=== PATIENT | female | born 1955 | race African-American/Black ===

== ENCOUNTER 2019-11-06 11:13 | Inpatient (IN) | payer OTHER, BC ==
[~2019-11-06] VITALS: Ht 162.6 cm; Wt 115.2 kg
[~2019-11-06 11:13] MED LIST: COZAAR 50 MG TA50 M1 PO; COZAAR PO; FISH OIL 1,0001 EAC5 PO; FISHOIL; FLEXERIL PO; GLUCOPHAGE1000 MG PO; HYDROCHLOROTHIA25 M2 PO; IMITREX 50 MG T50 M1 PO; LANTUS SQ; MEDROLDOSEPACK PO; MULTIVITAMINS PO; NEURONTIN 300300 M1 PO; PLAVIX 75 MG TA75 MG PO; PROAIR HFA8.5 GM IH; RANITIDINE HCL150 M1 PO; TOPROL XL50 MG; TOPROL XL50 MG PO; ZANAFLEX4 M1 PO; ZOLOFT 50 MG TA50 M1 PO; ZPAK PO
[2019-11-06 11:28] VITALS: BP 113/77
[2019-11-06 12:16] LABS: ABSOLUTE NEUTROPHILS 15.3 thou/uL (1.4-8.2); BASOPHILS 0.7 % (0.0-2.0); EOSINOPHILS 0.2 % (0.0-3.0); HEMATOCRIT 30.4 % (37.0-47.0); LYMPHOCYTES 9.2 % (24.0-44.0); MCH 27.5 pg (26.0-34.0); MCV 83.4 fL (80.0-100.0); MONOCYTES 7.6 % (1.0-8.0); PLATELET COUNT 263 thou/uL (150-400); POLYS 82.3 % (36.0-66.0); RBC 3.65 mil/uL (4.20-5.00); RDW 14.6 % (10.5-14.5); WBC 18.6 thou/uL (4.0-11.0)
[2019-11-06 12:19] LABS: ANION GAP 10 mmol/L (7-16); BUN 56 mg/dL (7-18); CHLORIDE 94 mmol/L (98-107); CO2 24 mmol/L (21-32); CREATININE 4.1 mg/dL (0.6-1.0); GLUCOSE 266 mg/dL (74-106); POTASSIUM 4.2 mmol/L (3.5-5.1); SODIUM 128 mmol/L (136-145)
[2019-11-06 12:29] LABS: ALBUMIN 2.2 g/dL (3.4-5.0); LIPASE 244 U/L (73-393); SGOT 35 U/L (15-37); SGPT 29 U/L (30-65); TOTAL BILIRUBIN 0.7 mg/dL (0.2-1.0); TOTAL PROTEIN 8.3 g/dL (6.4-8.2); TROPONIN-I <0.06 ng/mL (<0.06)
[2019-11-06] MEDS ORDERED: ACID CONTROLLER20 MG PO (13:28)
[2019-11-06] MEDS ORDERED: LIPITOR 40 MG T40 M1 PO (13:29)
[2019-11-06] MEDS ORDERED: AZOPT OPHTH1 %/10 M1 OPHTHALMIC (13:30)
[2019-11-06] MEDS ORDERED: FUROSEMIDE 20 M20 MG PO (13:30)
[2019-11-06] MEDS ORDERED: COMBIGAN EYE DR10 ML OPHTHALMIC (13:31)
[2019-11-06] MEDS ORDERED: BRIMONIDINE TART5 ML OPHTHALMIC (13:32)
[2019-11-06 14:03] LABS: URINE BILIRUBIN NEGATIVE (Negative); URINE BLOOD 1+ (Negative); URINE CLARITY CLEAR; URINE COLOR YELLOW; URINE GLUCOSE-RANDOM* TRACE (Negative); URINE KETONES NEGATIVE (Negative); URINE LEUKOCYTES-REFLEX NEGATIVE (Negative); URINE NITRITE-REFLEX NEGATIVE (Negative); URINE PROTEIN (DIPSTICK) 3+ (Negative)
[2019-11-06 14:08] LABS: BACTERIA-REFLEX 1-9 Few /HPF (None Seen); SQUAMOUS >10 Many /LPF (0-3); URINE RBC 0-2 Rare /HPF (0-2); URINE WBC-REFLEX 0-5 Rare /HPF (0-5)
[2019-11-06 14:09] LABS: CRYSTALS None Seen /LPF (None Seen)
[2019-11-06 14:45] LABS: URINE POTASSIUM-RANDOM* 48.2 mmol/L
--- NOTE | 2019-11-06 16:09 | EKG ---
[facility] [place] [address] ELECTROCARDIOGRAM REPORT Name: GERBER SHELL V Room #: 170- ADM IN M.R.#: [id number] Admission: 11/06/19 Attend Phys: Gray Blanca Discharge: Date of : 51 Report #: [id number] THIS REPORT FOR: cc: [facility] - Clinic physician unknown [facility] - Clinic physician unknown Austin Wesley MD [facility] ~ THIS REPORT FOR: //name// 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
[2019-11-06 16:54] VITALS: BP 122/70
[2019-11-06 19:30] VITALS: BP 150/80
[2019-11-06 20:30] VITALS: BP 115/75
--- NOTE | 2019-11-06 23:43 | NUR ---
PT ARRIVED VIA CART FROM ER. ADMISSION COMPLETED, CARE PLAN INITIATED, AND INTERVENTIONS UPDATED. PT IS COVID R/O FROM HOME. A/0X4 AND HAD A 101.8 FEVER WHEN SHE ARRIVED TO UNIT TYLENOL GIVEN. FALL HX WITHIN LAST WEEK, ABRASION TO RIGHT KNEE. PT PULLED OUT LEFT FOREARM IV WHEN GOING TO THE RESTROOM. RIGHT FOREARM IV ACCESS GAINED. ISOLATION AND FALL PRECAUTIONS IN PLACE.
[2019-11-07 05:26] LABS: HEMATOCRIT 30.2 % (37.0-47.0); HEMOGLOBIN 9.5 gm/dL (12.0-15.0); MCH 26.8 pg (26.0-34.0); MCHC 31.5 g/dL (28.0-37.0); MCV 84.9 fL (80.0-100.0); RBC 3.56 mil/uL (4.20-5.00); RDW 14.8 % (10.5-14.5)
[2019-11-07 06:39] LABS: ALBUMIN 1.9 g/dL (3.4-5.0); CALCIUM 8.3 mg/dL (8.5-10.1); CREATININE 4.1 mg/dL (0.6-1.0); PHOSPHORUS 3.8 mg/dL (2.5-4.9); POTASSIUM 3.7 mmol/L (3.5-5.1)
--- NOTE | 2019-11-07 07:17 | NUR ---
Nutrition: Received RD consult for 'diabetic diet and diet for diverticulitis'. Pt currently undering COVID testing. Will follow up to complete nutrition education once COVID results are known.
[2019-11-07 08:12] VITALS: BP 126/85
--- NOTE | 2019-11-07 10:13 | NUR ---
ULYSSES OTT STATED TO REMAIN IN ENHANCED PRECAUTIONS UNTIL EVALUATED BY DR LIZANDRO GOFF SINCE PATIENT HAD A FEVER 101.8 LAST NIGHT @ 1999...
--- NOTE | 2019-11-07 10:50 | NUR ---
INITIAL ASSESSMENt: Reviewed chart and spoke with nursing. Pt was admitted from home due to pneumonia/fevers. Pt is in Enhanced Isolation to r/o COVID-19. Pt's first test is negative. Awaiting input from ID regarding additional test. SW placed call to pt's room. No answer. Per chart, pt is alert/orientated x 4 and lives at home with her . Pt has health insurance through her 's employer. SW to follow up with pt at a later time and assist as needed with discharge planning.
[2019-11-07 12:24] VITALS: BP 135/78
[2019-11-07 16:42] VITALS: BP 142/63
--- NOTE | 2019-11-07 17:42 | NUR ---
PT REPORTS FEELING BETTER TODAY...COVID NEG X 1...NOTIFIED DR ANJU ARORA AND BACK OFFICE MEDICAL ASSISTANT OF RESULTS...WILL AWAIT DR LIZANDRO GOFF INPUT REGARDING ENHANCED PRECAUTIONS..
[2019-11-07 19:32] VITALS: BP 153/71
[2019-11-07 23:32] VITALS: BP 138/70
[2019-11-08 04:18] VITALS: BP 155/77
[2019-11-08 05:23] LABS: HEMATOCRIT 29.4 % (37.0-47.0); HEMOGLOBIN 9.5 gm/dL (12.0-15.0); MCH 27.5 pg (26.0-34.0); MCHC 32.3 g/dL (28.0-37.0); MCV 85.2 fL (80.0-100.0); RBC 3.46 mil/uL (4.20-5.00); RDW 14.8 % (10.5-14.5); WBC 10.5 thou/uL (4.0-11.0)
[2019-11-08 05:34] LABS: ALBUMIN 1.8 g/dL (3.4-5.0); CREATININE 3.4 mg/dL (0.6-1.0); PHOSPHORUS 3.2 mg/dL (2.5-4.9); POTASSIUM 3.8 mmol/L (3.5-5.1)
--- NOTE | 2019-11-08 05:54 | NUR ---
Patient making slow progress towards outcome goals. Febrile tonight, Temp range 99-101.2 orally. Not treated with Tylenol. White count improving. Up to BSC with standby assist, starting to gain leg strength back. IVfluids infusing. High fall risks, fall precautions in place.
[2019-11-08 08:00] VITALS: BP 144/85
--- NOTE | 2019-11-08 08:21 | NUR ---
Pt remains in isolation precautions. initial covid testing negative. High BMI 44.3=extreme class III obesity. Eating 25-80% of meals. BG 166-205 and requires HS insulin. Will add carb control to current diet order. Followup for any diet education needs once out of isolation. Low nutrition risk
--- NOTE | 2019-11-08 12:41 | NUR ---
SW reviewed chart and spoke with nursing and attending physician. Pt is slowly progressing towards goals for discharge. Pt remains in Enhanced Isolation. Pt is on IV abx. PT ordered to evaluate pt for discharge needs. Pt is normally independent with ADLs and ambulation. SW placed call to pt's room. No answer. Plan is for pt to discharge home when medically stable. SW is following and available to assist as needed with discharge planning.
[2019-11-08 15:53] VITALS: BP 150/87
--- NOTE | 2019-11-08 16:24 | NUR ---
ASSUMED CARE OF PT AT 0700. PT ALERT AND ORIENTED, IN NO ACUTE DISTRESS. DENIES PAIN. UP W/ SBA, WITHOUT DIFFICULTY. IV ABX INFUSING PER ORDER. BREATHING COMFORTABLY ON ROOM AIR. AFEBRILE TODAY. VITALS STABLE. C19 RESULTS NEGATIVE - HOSPITALIST AWARE.
[2019-11-08 19:38] VITALS: BP 168/83
--- NOTE | 2019-11-09 04:25 | NUR ---
resting quietly tonight. denies pain. coughing tonight, did not want anything to relieve. she gets up with only minimal assist to the bsc. continues on iv fluids. no elevated temperatures this shift. careplan reviewed.
[2019-11-09 04:51] VITALS: BP 157/84
[2019-11-09 06:00] LABS: ALBUMIN 1.8 g/dL (3.4-5.0); CALCIUM 8.4 mg/dL (8.5-10.1); CREATININE 2.9 mg/dL (0.6-1.0); PHOSPHORUS 2.8 mg/dL (2.5-4.9); POTASSIUM 4.2 mmol/L (3.5-5.1)
[2019-11-09 08:04] VITALS: BP 157/69
--- NOTE | 2019-11-09 15:27 | NUR ---
ASSUMED CARE OF PT AT 0700. PT AOX4 IN NO ACUTE DISTRESS. PLEASANT TODAY, VOICING NO CONCERNS. AMBULATING INDEPEDENTLY BUT SOA WHILE WALKING AROUND UNIT WITH PHYSICAL THERAPY. IV ABX INFUSING PER ORDER. PT WONDERING WHEN SHE WILL BE ABLE TO GO HOME. WCM.
[2019-11-09 19:35] VITALS: BP 159/79
[2019-11-10] VITALS (7 sets, daily range): BP systolic 152–154; BP diastolic 67–81
[2019-11-10 05:00] LABS: ALBUMIN 1.7 g/dL (3.4-5.0); CALCIUM 7.7 mg/dL (8.5-10.1); CREATININE 2.3 mg/dL (0.6-1.0); PHOSPHORUS 2.8 mg/dL (2.5-4.9); POTASSIUM 3.7 mmol/L (3.5-5.1)
--- NOTE | 2019-11-10 06:40 | NUR ---
PT MAKING PROGRESS TOWARDS GOALS. LUNGS DIMINISHED THROUGHOUT. NO COUGH NOTED. DENIED ANY SOA WHILE MOVING AROUND THE ROOM. PT HOPING FOR DISCHARGE TODAY.
[2019-11-10] MEDS ORDERED: AUGMENTIN 875-1 EACH PO (18:15)
[2019-11-10] MEDS ORDERED: SODIUM BICARBO650 M3 PO (18:15)
--- NOTE | 2019-11-10 19:40 | NUR ---
PT DISCHARGED HOME WITH SELF CARES...DAUGHTER TO COME PICK HER UP...RX SENT ELECTRONICALLY AND RX GIVEN FOR AUGMENTIN AND NA BICARB...REST EXER OXIMETRY 98% RA...TO FOLLOW UP 3D WITH RENAL DR AND 1 WEEK WITH PCP...
--- NOTE | 2019-11-11 02:27 | NUR ---
PT WAS DISCHARGED BETWEEN 8-9PM ON 11/10/19. ALL DISCHARGE MATERIALS WERE GIVEN TO THE PATIENT AND PT WAS COHERENT AND AOX4 AT THE TIME OF THE DISCHARGE. PT'S CALLED AN HOUR LATER, INQUIRED MORE ABOUT DISCHARGE INSTRUCTIONS AND REQUESTED ASSISTANCE WITH OBTAINING PRESCRIPTIONS ON A MONDAY EVENING AT 10PM. RN WAS ABLE TO CALL IN PRESCRIPTION AT A LOCAL PHARMACY, AND FURTHER EXPLAINED THE DISCHARGE INSTRUCTION. PT'S CALLED AGAIN TO ASK ABOUT DIRECTIONS FOR MEDICATION. RN WAS ABLE TO CLEAR THE DIRECTIONS FOR THE PT'S FAMILY WELL. PT'S VERBALLY EXPRESSED CONTENT FOR THE TIME BEING. RN REASSURED THAT PT'S FAMILY MAY CALL FOR ANY ASSISTANCE NEEDED AND 3W TEAM WOULD BE GLAD TO BE OF HELP.
--- NOTE | 2019-11-22 15:17 | HC ---
[facility] [place] [address] CONSULTATION Name: GERBER SHELL V Room #: 359-P [facility] IN M.R.#: [id number] Admission: 11/06/19 Attend Phys: Gray Blanca Discharge: 11/10/19 Date of : 51 Report #: [id number] THIS REPORT FOR: cc: [facility] - Clinic physician unknown [facility] - Clinic physician unknown Presley Lua MD ~ CC: [facility] unknown Gray Blanca REASON FOR CONSULTATION: Elevated creatinine. REASON FOR PRESENTATION: Shortness of breath. HISTORY OF PRESENT ILLNESS: This is a 64-year-old with known longstanding hypertension and diabetes mellitus. She is chronic kidney disease patient who used to see me in the clinic a couple of years ago with a baseline creatinine of around 2.0. Unfortunately, she lost to follow up with our clinic. She presented to the Emergency Room reporting some major cough and shortness of breath. She was admitted and is being ruled out for COVID-19 infection. Creatinine on presentation was elevated at 4.1 and with hydration this has trended down to 3.4. The patient is currently being treated as a case of community-acquired pneumonitis. I was asked to assist with the management of her chronic kidney disease. She denies any current urinary symptoms. From the kidney perspective, as stated above, the patient lost to follow up with our kidney clinic. Baseline creatinine a year ago was in the 2 range. She had proven chronic kidney biopsy attributed to her diabetes mellitus and hypertension. ALLERGIES: MORPHINE, ASPIRIN, IBUPROFEN, LATEX. PAST MEDICAL AND SURGICAL HISTORY: 1. Diabetes mellitus. 2. Hypertension. 3. Chronic kidney disease with a baseline creatinine of around 2. 4. Hysterectomy. 5. Cholecystectomy. 6. Repeated episodes of hypertensive urgency and pulmonary edema at different facilities including [facility] and [facility]. SOCIAL HISTORY: Lives with her . No drug or alcohol abuse. MEDICATIONS: 1. Atorvastatin 40 mg daily. 2. Lasix 20 mg daily. 3. Losartan 100 mg daily. 4. Glargine insulin 35 units at bedtime. 5. Hydrochlorothiazide. [facility] [address] [place] [address] CONSULTATION Name: GERBER SHELL V Room #: 359-P [facility] IN M.R.#: [id number] Admission: 11/06/19 Attend Phys: Gray Blanca Discharge: 11/10/19 Date of : 51 Report #: [id number] 6. Famotidine. REVIEW OF SYSTEMS: GENERAL: No fever or chills. CARDIOVASCULAR: As per the history of present illness. PULMONARY: As per the history of present illness. GASTROINTESTINAL: No nausea or vomiting. GENITOURINARY: No frequency, no urgency. MUSCULOSKELETAL: Occasional back pain and myalgias. SKIN: No rash or ulcerations. NEUROLOGICAL: No headache, no dizziness, no syncope. PHYSICAL EXAMINATION: GENERAL: Alert, oriented, in no apparent distress. VITAL SIGNS: Blood pressure is 144/85, temperature is 37, pulse rate 87, respiratory rate is 16. HEAD AND NECK: No jugular venous distention, no bruit, no thyromegaly. CHEST: Decreased air entry bilaterally with minimal bilateral crackles. CARDIOVASCULAR: Regular with no rub detected. ABDOMEN: Soft, nontender. LOWER EXTREMITIES: Trace edema. LABORATORY DATA: On presentation, her white blood cell count was 18.6. This was down to 10.5. She is anemic with a hemoglobin of 9.5. Sodium is 135, BUN is 53, creatinine is 3.4. Blood sugar is elevated at 166. Albumin is low at 1.8. DIAGNOSTIC DATA: Chest x-ray reviewed and this showed left-sided infrahilar infiltration. IMPRESSION: 1. Chronic kidney disease. 2. Acute kidney injury. 3. Pneumonia. 4. Hypoxemia. 5. Diabetes mellitus. 6. Hypertension. PLAN: 1. So far, the patient has responded very well with IV fluid. Continue with the same. Her baseline creatinine is around 2.0. 2. Continue to watch blood pressure and blood sugar. 3. Appropriate coverage for her pneumonia. 4. She was counseled about the necessity for close followup of her renal [address] [address] CONSULTATION Name: GERBER SHELL Brooke Room #: 359-P [facility] IN M.R.#: [id number] Admission: 11/06/19 Attend Phys: Gray Blanca Discharge: 11/10/19 Date of : 51 Report #: [id number] function. Creatinine is down to 3.4. Her baseline is around 2.0. We will see how her numbers settle. <ELECTRONICALLY SIGNED> By: Presley Lua MD 11/22/19 1517 9 9 Presley Lua MD /nt
== END 2019-11-10 21:09 | disposition home or self-care (01) | DRG 871 ==
LOC: ER 11:13 → EROBS 14:55 → 3W 14:55
PROVIDERS: Hospitalist; Physician Assistant; ADMIT Hospitalist; ATTEND Hospitalist
DX: A41.9 Sepsis, unspecified organism (principal); J18.9 Pneumonia, unspecified organism; E43 Unspecified severe protein-calorie malnutrition; N17.9 Acute kidney failure, unspecified; E87.1 Hypo-osmolality and hyponatremia; Z68.41 Body mass index [BMI] 40.0-44.9, adult; E11.40 Type 2 diabetes mellitus with diabetic neuropathy, unspecified; E86.0 Dehydration; E11.22 Type 2 diabetes mellitus with diabetic chronic kidney disease; I12.9 Hypertensive chronic kidney disease with stage 1 through stage 4 chronic kidney disease, or unspecified chronic kidney disease; E66.01 Morbid (severe) obesity due to excess calories; N18.3 Chronic kidney disease, stage 3 (moderate); Z90.710 Acquired absence of both cervix and uterus; Z90.49 Acquired absence of other specified parts of digestive tract; Z88.6 Allergy status to analgesic agent; Z91.040 Latex allergy status; Z03.818 Encounter for observation for suspected exposure to other biological agents ruled out
CPT/HCPCS: 10779